=== PATIENT | female | born 1955 | race Caucasian/White ===

== ENCOUNTER 2023-12-30 08:30 | Emergency (ER) | payer MEDICARE, OTHER ==
[2023-12-30 09:04] LABS: HEMOGLOBIN 14.9 g/dL (11.2-15.5); MEAN CORPUSCULAR HEMOGLOBIN 29.3 pg (31.6-35.5); MEAN CORPUSCULAR HGB CONC 34.7 g/dL (31.6-35.5); MEAN CORPUSCULAR VOLUME 84.6 fL (81.4-99.0); PLATELET COUNT,PLT 198 K/uL (130-375); RED BLOOD CELL COUNT 5.08 M/uL (3.77-5.24)
[2023-12-30] MEDS: Ketorolac 30 MG/ML SDV IVPUSH ONE (09:06)
[2023-12-30] MEDS: Sodium Chloride 0.9% 1,000 ML IV ONE (09:06)
[2023-12-30] MEDS: Prochlorperazine 10 MG/2 ML SDV IVPUSH ONE (09:14)
[2023-12-30 09:19] LABS: INR 1.2; PROTHROMBIN TIME 12.1 sec (9.2-10.6)
[2023-12-30 09:21] LABS: A/G RATIO 1.1 (1.2-2.2); ALANINE AMINOTRANSFERASE,ALT 36 U/L (12-78); ALKALINE PHOSPHATASE 106 U/L (46-116); ANION GAP 14.2 mmol/L (5.0-14.0); ASPARTATE AMNIOTRANSFERASE,AST 23 U/L (15-37); BILIRUBIN TOTAL 1.8 mg/dL (0.2-1.0); BLOOD UREA NITROGEN,BUN 23 mg/dL (7-18); CALCIUM 9.7 mg/dL (8.5-10.1); CARBON DIOXIDE,CO2 24 mmol/L (21-32); CHLORIDE,CL 103 mmol/L (100-108); ESTIMATED GFR 62 mL/min (>60); GLUCOSE RANDOM 161 mg/dL (74-106); PROTEIN TOTAL,TP 7.7 g/dL (6.4-8.2); SODIUM,NA 141 mmol/L (140-148)
[2023-12-30 09:56] LABS: APPEARANCE,URINE CLEAR (CLEAR); BILIRUBIN,URINE NEGATIVE (NEGATIVE); COLOR,URINE YELLOW (YELLOW); GLUCOSE,URINE NEGATIVE (NEGATIVE); KETONES,URINE NEGATIVE (NEGATIVE); LEUKOCYTE ESTERASE,URINE MODERATE (NEGATIVE); NITRITE,URINE NEGATIVE (NEGATIVE); OCCULT BLOOD,URINE MODERATE (NEGATIVE); PH,URINE 5.5 (5.0-8.0); PROTEIN,URINE 30 mg/dL (NEGATIVE); UROBILINOGEN,URINE 0.2 EU/dL (0.2-1.0)
[2023-12-30 10:04] LABS: BACTERIA,URINE FEW; EPITHELIAL CELLS,URINE RARE; RBC,URINE 30-40 (0-5)
[2023-12-30] MEDS: Tamsulosin 0.4 MG Cap.ER PO ONE (10:41)
[2023-12-30] MEDS: Levofloxacin/Dextrose 5%-Water 500 MG in Premix Bag 1 BAG IV ONE (10:42)
[2023-12-30] MEDS ORDERED: Naloxone 0.4 MG/ML SDV IVPUSH PRN (10:55)
[2023-12-30] MEDS: HYDROmorphone 0.5 MG/0.5 ML Syringe IVPUSH PRN (11:03)
[2023-12-30] MEDS: Sodium Chloride 0.9% 1,000 ML IV SCH (11:54)
[2024-01-03 08:19] LABS: BAND ABSOLUTE MAN 1.35 K/uL; BAND PERCENT MAN 27 % (5-11); LYMPHOCYTES PERCENT MAN 14 % (24-44); MONOCYTES ABSOLUTE MAN 0.05 K/uL (0.20-0.90); MONOCYTES PERCENT MAN 1 % (2-6); SEG NEUTROPHILS PERCENT MAN 58 % (36-66)
== END 2023-12-30 13:15 ==
LOC: JP.ED 08:30
DX: N13.2 Hydronephrosis with renal and ureteral calculous obstruction (principal); Z88.1 Allergy status to other antibiotic agents; Z88.8 Allergy status to other drugs, medicaments and biological substances; Z79.899 Other long term (current) drug therapy
CPT/HCPCS: 36415; 74176; 80053; 81001; 85025; 85610; 87086; 87088; 87186; 96361; 96365; 96375; 96376; 99285; A9270; J0780; J1885; J1956; J7030; J1171